=== PATIENT | male | born 1945 | race Caucasian/White ===

== ENCOUNTER 2017-03-20 19:53 | Observation (INO) | payer BC ==
--- NOTE | 2017-03-20 20:47 | RAD ---
HISTORY: Right elbow pain, swelling COMPARISONS: None VIEWS: 4, Frontal, lateral, and oblique views of the right elbow FINDINGS: BONE DENSITY: Normal. BONES: There is no displaced fracture. There is an enthesophyte of the olecranon. There is no appreciable erosion or periosteal reaction. JOINTS: There is mild osteoarthritis of the ulna-trochlear articulation. There is a supracondylar fat pad posteriorly consistent with joint effusion. ALIGNMENT: There is no dislocation. SOFT TISSUES: There is soft tissue swelling. There is dystrophic calcification along the lateral humeral epicondyle. OTHER FINDINGS: None. IMPRESSION: 1. JOINT EFFUSION. 2. MILD OSTEOARTHRITIS. 3. DYSTROPHIC CALCIFICATION ALONG THE MEDIAL HUMERAL EPICONDYLE SUGGESTIVE OF EPICONDYLITIS. 4. SOFT TISSUE SWELLING. 5. NO APPRECIABLE EROSION OR PERIOSTEAL REACTION. PLAIN FILM FINDINGS OF OSTEOMYELITIS ARE RELATIVELY LATE FINDINGS. IF THERE IS PERSISTENT CLINICAL CONCERN FOR OSTEOMYELITIS, RECOMMEND CORRELATION WITH FOLLOWUP IMAGING, THREE-PHASE BONE SCANNING, WHITE BLOOD CELL SCAN, AND/OR MRI OF THE AFFECTED REGION.
[2017-03-20 20:50] LABS: ABS Basophils 0.1 10^3/ul (0-0.2); ABS Eosinophils 0.1 10^3/ul (0-0.6); ABS Lymphocytes 1.5 10^3/ul (1.0-4.8); ABS Monocytes 1.3 10^3/ul (0-0.8); ABS Neutrophils 7.3 10^3/ul (1.5-7.7); ABS Nucleated RBC 0 10^3/ul; Hematocrit 43 % (42-52); Hemoglobin 14.8 g/dl (14.0-18.0); Lymphocyte % 14.7 % (25-47); Mean Corpuscular HGB Conc 35 g/dl (31-36); Mean Corpuscular Hemoglobin 33 pg (27-31); Mean Corpuscular Volume 95 fL (80-94); Mean Platelet Volume 8 um3 (7.4-10.4); Nucleated Red Blood Cells % 0; Platelet Count 300 10^3/ul (150-450); Red Blood Count 4.48 10^6/ul (4.0-5.4); Red Cell Distribution Width 13 % (10.5-15); White Blood Count 10.3 10^3/ul (3.5-10.8)
[2017-03-20 21:05] LABS: EGFR Non-African American 64.6 (>60)
[2017-03-20] MEDS ORDERED: Ondansetron INJ* 2 MG/ML VIAL IV PRN (21:38)
[2017-03-20] MEDS ORDERED: CMCS: Melatonin (NF) 3 MG TAB PO PRN (21:38)
[2017-03-20] MEDS ORDERED: Acetaminophen TAB* 325 MG PO PRN (21:38)
[2017-03-20] MEDS ORDERED: oxyCODONE TAB* 5 MG TAB PO PRN (21:38)
[2017-03-20] MEDS ORDERED: traMADol TAB* 50 MG PO PRN (21:38)
--- NOTE | 2017-03-20 21:54 | ED ---
Jerzy Hahn Julia, scribed for Salvador Erickson MD on 03/20/17 at 2028 . Upper Extremity Pain - HPI Summary HPI Summary: This patient is a 72 year old M presenting to [facility] with a chief complaint of worsening R elbow pain and swelling since 03/17/17. Patient reports inability to flex elbow beyond 90 degrees, and fever today (99.5). Patient denies chills, sweats. The patient rates the pain 7/10 in severity. Pt has been self-limiting ROM. Pt states symtpoms have been occurring for a few weeks. Pt has no hx of OA or RA. - History of Current Complaint Chief Complaint: EDExtremityUpper Stated Complaint: RIGHT ELBOW PAIN Time Seen by Provider: 03/20/17 20:13 Hx Obtained From: Patient Onset/Duration: Started Weeks Ago, Still Present, Worse Since - since 03/17/17 Timing: Constant Severity Initially: Mild Severity Currently: Moderate Pain Location: Elbow - R Aggravating Factor(s): Flexion, Extension - Allergies/Home Medications Allergies/Adverse Reactions: Allergies Allergy/AdvReac Type Severity Reaction Status Date / Time Sulfa (Sulfonamide Allergy Unknown Verified 03/20/17 20:03 Antibiotics) Reaction Details PMH/Surg Hx/FS Hx/Imm Hx Sensory History: Reports: Hx Contacts or Glasses Opthamlomology History: Denies: Hx Legally Blind EENT History: Denies: Hx Deafness Infectious Disease History: No Infectious Disease History: Denies: Traveled Outside the [place] in Last 30 Days - Family History Known Family History: Positive: Other - lung CA - Social History Hx Tobacco Use: Yes - Light smoker over 40 years ago Smoking Status (MU): Former Smoker Review of Systems Positive: Fever. Negative: Chills, Skin Diaphoresis Eyes: Negative ENT: Negative Cardiovascular: Negative Respiratory: Negative Gastrointestinal: Negative Genitourinary: Negative Positive: Arthralgia, Myalgia - R elbow, Decreased ROM - R elbow, Edema Skin: Other Positive: Other Neurological: Negative All Other Systems Reviewed And Are Negative: Yes Physical Exam - Summary Physical Exam Summary: Appearance: Well-appearing, Well-nourished Skin: Warm, Dry, No rash Eyes: Normal, PERRL, EOMI, sclera anicteric ENT: Normal Neck: Supple, nontender Respiratory: Clear to auscultation Cardiovascular: S1, S2, no rub, no gallop, soft systolic murmur detected a L sternal border Abdomen: Soft, nontender, no organomegaly Bowel sounds: Present Musculoskeletal: Normal, Limited flexion and extension no edema, R elbow edema, most tender over medial condyle. Cellulitisover olecranon bursa Neurological: Normal, A&Ox3, cranial nerves II-XII WNL, follows commands, gait not tested, sensation intact to pin and light touch Psychiatric: affect normal, behavior appropriate, dressed appropriately, judgment intact Triage Information Reviewed: Yes Vital Signs On Initial Exam: Initial Vitals Temp Pulse Resp BP Pulse Ox 99.5 F 100 20 149/80 96 03/20/17 19:59 03/20/17 19:59 03/20/17 19:59 03/20/17 19:59 03/20/17 19:59 Vital Signs Reviewed: Yes Diagnostics - Vital Signs Vital Signs Temp Pulse Resp BP Pulse Ox 03/20/17 19:59 99.5 F 100 20 149/80 96 - Laboratory Lab Results: Lab Results 03/20/17 03/20/17 Range/Units 20:37 20:37 WBC 10.3 (3.5-10.8) 10^3/ul RBC 4.48 (4.0-5.4) 10^6/ul Hgb 14.8 (14.0-18.0) g/dl Hct 43 (42-52) % MCV 95 H (80-94) fL MCH 33 H (27-31) pg MCHC 35 (31-36) g/dl RDW 13 (10.5-15) % Plt Count 300 (150-450) 10^3/ul MPV 8 (7.4-10.4) um3 Neut % (Auto) 70.5 (38-83) % Lymph % (Auto) 14.7 L (25-47) % King % (Auto) 12.7 H (1-9) % Eos % (Auto) 1.0 (0-6) % Baso % (Auto) 1.1 (0-2) % Absolute Neuts (auto) 7.3 (1.5-7.7) 10^3/ul Absolute Lymphs (auto) 1.5 (1.0-4.8) 10^3/ul Absolute Monos (auto) 1.3 H (0-0.8) 10^3/ul Absolute Eos (auto) 0.1 (0-0.6) 10^3/ul Absolute Basos (auto) 0.1 (0-0.2) 10^3/ul Absolute Nucleated RBC 0 10^3/ul Nucleated RBC % 0 ESR 29 (0-40) mm/Hr Sodium 136 (133-145) mmol/L Potassium 3.9 (3.5-5.0) mmol/L Chloride 102 (101-111) mmol/L Carbon Dioxide 27 (22-32) mmol/L Anion Gap 7 (2-11) mmol/L BUN 15 (6-24) mg/dL Creatinine 1.12 (0.67-1.17) mg/dL Est GFR ( Amer) 83.1 (>60) Est GFR (Non-Af Amer) 64.6 (>60) BUN/Creatinine Ratio 13.4 (8-20) Glucose 133 H (70-100) mg/dL Calcium 9.7 (8.6-10.3) mg/dL Total Bilirubin 0.60 (0.2-1.0) mg/dL AST 19 (13-39) U/L ALT 14 (7-52) U/L Alkaline Phosphatase 52 (34-104) U/L C-Reactive Protein 33.70 H (< 5.00) mg/L Total Protein 7.3 (6.4-8.9) g/dL Albumin 4.1 (3.2-5.2) g/dL Globulin 3.2 (2-4) g/dL Albumin/Globulin Ratio 1.3 (1-3) Result Diagrams: 03/20/17 20:37 03/20/17 20:37 Lab Statement: Any lab studies that have been ordered have been reviewed, and results considered in the medical decision making process. - Radiology R Elbow XR Radiology Interpretation Completed By: Radiologist - 1. JOINT EFFUSION. 2. MILD OSTEOARTHRITIS. 3. DYSTROPHIC CALCIFICATION ALONG THE MEDIAL HUMERAL EPICONDYLE SUGGESTIVE OF EPICONDYLITIS. 4. SOFT TISSUE SWELLING. 5. NO APPRECIABLE EROSION OR PERIOSTEAL REACTION. PLAIN FILM FINDINGS OF OSTEOMYELITIS ARE RELATIVELY LATE FINDINGS. IF THERE IS PERSISTENT CLINICAL CONCERN FOR OSTEOMYELITIS, RECOMMEND CORRELATION WITH FOLLOWUP IMAGING, THREE- PHASE BONE SCANNING, WHITE BLOOD CELL SCAN, AND/OR MRI OF THE AFFECTED REGION. ED Physician has reviewed this report. Course/Dx - Course Course Of Treatment: Pt presents with worsening R elbow pain and swelling since 03/17/17. Patient reports inability to flex elbow beyond 90 degrees, and fever today (99.5). Pt states symtpoms have been occurring for a few weeks. XR reveals joint effusion. Due to limited ROM and cellulitis, there is concern for infection. Dr. Mane agrees to admit at 21:30. - Diagnoses Provider Diagnoses: Erysipelas, Joint infection - Physician Notifications Discussed Care of Patient With: Nikolas Ngo - Ortho Time Discussed With Above Provider: 21:26 Instructed by Provider To: Other - does not object to admission Discharge - Discharge Plan Condition: Fair Disposition: ADMITTED TO [facility] The documentation as recorded by the Jerzy biggs Julia accurately reflects the service I personally performed and the decisions made by me, Salvador Erickson MD.
[2017-03-20] MEDS ORDERED: ceFAZolin 1 GM VIAL(*) 1 GM in NS 0.9% 50 ML* 50 ML IVPB SCH (22:00)
[2017-03-20] MEDS ORDERED: Vancomycin per Pharmacy* NOTE FOLLOW UP PRN (22:23)
[2017-03-20] MEDS: ceFAZolin 1 GM in Dextrose (*) 1 GM/50 ML BAG IVPB SCH (22:25)
[2017-03-20 22:36] LABS: INR 0.96 (0.77-1.02)
[2017-03-20] MEDS ORDERED: Vancomycin(*) 1,000 MG in NS 0.9% 250 ML* 250 ML IVPB ONE (23:00)
[2017-03-20] MEDS: NS 0.9% 1000 ML* 1,000 ML IV SCH (23:17)
--- NOTE | 2017-03-20 23:44 | HP ---
H&P (Free Text) History and Physical: PCP: Angel Haines MD Date/Time: 03/20/20172129 CC: R elbow pain & swelling HPI: Mr Okeefe is a 72YO male HX hypothyroidism reports onset of R elbow discomfort around [place] which has waxed and waned, but not been significant until this past Saturday when he experienced significant worsening of pain worse with bending the joint, swelling, and redness for which he presents tonight. He denies F/C, sweats, N/V, diarrhea, chest pain, SoB, palpitations, light- headedness, open wound, drainage, or other issues. He denies injury or change in activity. He has no HX of gout or diabetes. PMedHx hypothyroidism HX hepatitis 2nd trimethoprim/sulfamethoxazole Ambulatory Orders Aspirin TAB* [Aspirin 325 MG TAB*] 325 mg PO DAILY 03/20/17 Levothyroxine TAB* [Synthroid TAB*] 100 mcg PO DAILY 03/20/17 Allergies Sulfa (Sulfonamide Antibiotics) Allergy (Verified 03/20/17 20:03) Unknown Reaction Details PSurgHx tonsillectomy appendectomy SocHx: trivial smoking HX, no alcohol or recreational drugs; lives with his ; works as a event promoter; full code status FamHx: Father: passed at 56 2nd lung CA. An uncle passed at 48 2nd lung CA. ROS: as above, otherwise reviewed and all were negative vitals: Vital Signs Temp 37.2 C 03/20/17 23:10 Pulse 72 03/20/17 23:10 Resp 16 03/20/17 23:10 BP 134/74 03/20/17 23:10 Pulse Ox 96 03/20/17 23:10 Intake & Output 03/19/17 03/20/17 03/20/17 23:59 11:59 23:59 Weight 63.503 kg Constitutional: NAD, normally developed, well-nourished white male HEENM: atraumatic; sclera/conjunctiva: anicteric/clear; hearing: clinically intact; oropharynx: clear, mucosa moist Neck: soft tissue: non-tender; thyroid: normal Pulmonary: clear to auscultation bilaterally, good aeration, no accessory muscle use CV: RR/RR, normal S1S2, 2/6 holo-systolic ejection murmure, no carotid bruit, no jugular venous distention, 2+ B DP/PT, no edema Abdominal: soft, non-distended, non-tender, no rebound/guarding/rigidity, normoactive bowel sounds, no hepatosplenomegaly or masses, no costovertebral angle tenderness Musculoskeletal: general: grossly intact; R elbow w/ soft tissue swelling & induration centered around the medial epicondyle, no crepitus, marked pain with any active/passive ROM Integumental: light uniform erythema centered on R medial epicondyle Psychiatric orientation: AA&O to PPS affect: calm mood: cooperative eye contact: good content: reliable responses: timely insight: good Testing: Lab Results 03/20/17 03/20/17 03/20/17 Range/Units 20:37 20:37 22:00 WBC 10.3 (3.5-10.8) 10^3/ul RBC 4.48 (4.0-5.4) 10^6/ul Hgb 14.8 (14.0-18.0) g/dl Hct 43 (42-52) % MCV 95 H (80-94) fL MCH 33 H (27-31) pg MCHC 35 (31-36) g/dl RDW 13 (10.5-15) % Plt Count 300 (150-450) 10^3/ul MPV 8 (7.4-10.4) um3 Neut % (Auto) 70.5 (38-83) % Lymph % (Auto) 14.7 L (25-47) % Wheeler % (Auto) 12.7 H (1-9) % Eos % (Auto) 1.0 (0-6) % Baso % (Auto) 1.1 (0-2) % Absolute Neuts (auto) 7.3 (1.5-7.7) 10^3/ul Absolute Lymphs (auto) 1.5 (1.0-4.8) 10^3/ul Absolute Monos (auto) 1.3 H (0-0.8) 10^3/ul Absolute Eos (auto) 0.1 (0-0.6) 10^3/ul Absolute Basos (auto) 0.1 (0-0.2) 10^3/ul Absolute Nucleated RBC 0 10^3/ul Nucleated RBC % 0 ESR 29 (0-40) mm/Hr INR (Anticoag Therapy) 0.96 (0.77-1.02) APTT 31.2 (26.0-36.3) seconds Sodium 136 (133-145) mmol/L Potassium 3.9 (3.5-5.0) mmol/L Chloride 102 (101-111) mmol/L Carbon Dioxide 27 (22-32) mmol/L Anion Gap 7 (2-11) mmol/L BUN 15 (6-24) mg/dL Creatinine 1.12 (0.67-1.17) mg/dL Est GFR ( Amer) 83.1 (>60) Est GFR (Non-Af Amer) 64.6 (>60) BUN/Creatinine Ratio 13.4 (8-20) Glucose 133 H (70-100) mg/dL Calcium 9.7 (8.6-10.3) mg/dL Total Bilirubin 0.60 (0.2-1.0) mg/dL AST 19 (13-39) U/L ALT 14 (7-52) U/L Alkaline Phosphatase 52 (34-104) U/L C-Reactive Protein 33.70 H (< 5.00) mg/L Total Protein 7.3 (6.4-8.9) g/dL Albumin 4.1 (3.2-5.2) g/dL Globulin 3.2 (2-4) g/dL Albumin/Globulin Ratio 1.3 (1-3) 03/20/17 Range/Units 22:00 WBC (3.5-10.8) 10^3/ul RBC (4.0-5.4) 10^6/ul Hgb (14.0-18.0) g/dl Hct (42-52) % MCV (80-94) fL MCH (27-31) pg MCHC (31-36) g/dl RDW (10.5-15) % Plt Count (150-450) 10^3/ul MPV (7.4-10.4) um3 Neut % (Auto) (38-83) % Lymph % (Auto) (25-47) % Wheeler % (Auto) (1-9) % Eos % (Auto) (0-6) % Baso % (Auto) (0-2) % Absolute Neuts (auto) (1.5-7.7) 10^3/ul Absolute Lymphs (auto) (1.0-4.8) 10^3/ul Absolute Monos (auto) (0-0.8) 10^3/ul Absolute Eos (auto) (0-0.6) 10^3/ul Absolute Basos (auto) (0-0.2) 10^3/ul Absolute Nucleated RBC 10^3/ul Nucleated RBC % ESR (0-40) mm/Hr INR (Anticoag Therapy) (0.77-1.02) APTT (26.0-36.3) seconds Sodium (133-145) mmol/L Potassium (3.5-5.0) mmol/L Chloride (101-111) mmol/L Carbon Dioxide (22-32) mmol/L Anion Gap (2-11) mmol/L BUN 15 (6-24) mg/dL Creatinine 1.10 (0.67-1.17) mg/dL Est GFR ( Amer) 84.9 (>60) Est GFR (Non-Af Amer) 66.0 (>60) BUN/Creatinine Ratio (8-20) Glucose (70-100) mg/dL Calcium (8.6-10.3) mg/dL Total Bilirubin (0.2-1.0) mg/dL AST (13-39) U/L ALT (7-52) U/L Alkaline Phosphatase (34-104) U/L C-Reactive Protein (< 5.00) mg/L Total Protein (6.4-8.9) g/dL Albumin (3.2-5.2) g/dL Globulin (2-4) g/dL Albumin/Globulin Ratio (1-3) XRY R elbow, personally reviewed: IMPRESSION: 1. JOINT EFFUSION. 2. MILD OSTEOARTHRITIS. 3. DYSTROPHIC CALCIFICATION ALONG THE MEDIAL HUMERAL EPICONDYLE SUGGESTIVE OF EPICONDYLITIS. 4. SOFT TISSUE SWELLING. 5. NO APPRECIABLE EROSION OR PERIOSTEAL REACTION. PLAIN FILM FINDINGS OF OSTEOMYELITIS ARE RELATIVELY LATE FINDINGS. IF THERE IS PERSISTENT CLINICAL CONCERN FOR OSTEOMYELITIS, RECOMMEND CORRELATION WITH FOLLOWUP IMAGING, THREE-PHASE BONE SCANNING, WHITE BLOOD CELL SCAN, AND/OR MRI OF THE AFFECTED REGION. Impression: 72M HX hypothyroidism presenting with cellulitis R elbow & concern for septic joint DIAGNOSIS & PLAN Primary cellulitis R elbow, concern for septic joint : IV vancomycin & cefazolin : IVFs : blood CX : A Mariel, MD orthopedic surgeon consulted by ED, will evaluate in AM : pain control : supportive care Secondary hypothyroidism : continue levothyroxine Admission Rational: inpatient for potential septic joint not anticipated to be adequately evaluated & treated w/i 48h to allow for discharge DVTp: heparin SQ Code Status: full HCP:
[2017-03-21] MEDS: ceFAZolin 1 GM in Dextrose (*) 1 GM/50 ML BAG IVPB SCH ×2 (05:15→09:49)
[2017-03-21] MEDS ORDERED: Omeprazole CAP* 20 MG PO SCH (06:00)
[2017-03-21] MEDS ORDERED: Heparin VIAL(*) 5000 UNITS/ML VIAL (FIVE THOUSAND) SUBCUT SCH ×2 (06:00→18:00)
[2017-03-21] MEDS ORDERED: Levothyroxine TAB* 100 MCG TAB PO SCH (06:00)
[2017-03-21 06:14] LABS: ABS Basophils 0.1 10^3/ul (0-0.2); ABS Eosinophils 0.2 10^3/ul (0-0.6); ABS Lymphocytes 1.8 10^3/ul (1.0-4.8); ABS Monocytes 1.2 10^3/ul (0-0.8); ABS Nucleated RBC 0 10^3/ul; Eosinophil % 1.9 % (0-6); Hematocrit 41 % (42-52); Lymphocyte % 21.3 % (25-47); Mean Corpuscular HGB Conc 34 g/dl (31-36); Mean Corpuscular Hemoglobin 33 pg (27-31); Mean Corpuscular Volume 96 fL (80-94); Mean Platelet Volume 8 um3 (7.4-10.4); Nucleated Red Blood Cells % 0.1; Platelet Count 280 10^3/ul (150-450); Red Blood Count 4.27 10^6/ul (4.0-5.4); Red Cell Distribution Width 13 % (10.5-15); White Blood Count 8.2 10^3/ul (3.5-10.8)
[2017-03-21 06:27] LABS: EGFR Non-African American 67.4 (>60)
[2017-03-21] MEDS ORDERED: Aspirin TAB* 325 MG PO SCH (09:00)
[2017-03-21] MEDS ORDERED: Docusate CAP* 100 MG PO SCH (09:00)
--- NOTE | 2017-03-21 09:49 | CONSULT ---
Consult Consult: Orthopedics Consult Chief Complaint: Right elbow pain. 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 He reports 1 week of worsening right medial elbow pain and swelling. No discrete trauma or injury that he recalls. Has had tennis elbow in the past. Came into ER last night due to acute worsening. He reports improvement since starting antibiotics. The pain is located at the medial right elbow and is daily, moderate, burning. Pain worse with motion and lessened when rested. There is associated swelling but no ecchymosis. No DM, smoking or h/o VTE Review of Systems: Negative for fever, recent visual changes, difficulty swallowing, chest pain, shortness of breath, abdominal pain, hematuria, easy bruising, diffuse weakness or lack of coordination, and diffuse rash. PMH: hypothyroid Allergies: sulfa PSH: tonsillectomy, appendectomy Meds: aspirin, levothyroxine FH: lung cancer SH: veteranarian, . non smoker Physical Examination: Constitutional: Temp Pulse Resp BP Pulse Ox 97.9 F 64 16 122/59 97 03/21/17 07:41 03/21/17 07:41 03/21/17 08:00 03/21/17 07:41 03/21/17 07:41 General appearance is healthy and non-septic in no acute distress. Cardiovascular: Pulse examination demonstrates positive radial pulses with brisk capillary refill. There are no varicosities. Abdomen: soft and nontender Lymphatic: No lymphadenopathy appreciated. Skin: Bilateral upper and lower extremity examination demonstrates no ulcerative lesions. Psychiatric / Neurological: Appropriate affect. Alert and oriented to person, place and time. There is no significant abnormality in coordination appreciated. Normoreflexive deep tendon reflex of the affected extremity. Musculoskeletal: Bilateral lower extremities and contralateral upper extremity show full range of motion with no evidence of instability and no tenderness with palpation and 5 /5 strength. There is no gross deformity. Intact light touch sensation. There is no global swelling, edema, or varicosities. The skin and nails are normal to inspection/palpation without evidence of RSD or lymphadenopathy. TTP at medial elbow with some edema and warmth. No erythema on exam today. Shoulder ROM - full and painless Elbow ROM - 50 degrees of flex/extension before becomes painful. Full, painless pronation and supination. Wrist ROM - full and painless 5/5 EPL, OP, 1st LISANDRA SILT R/M/U distributions Palpable radial pulse. Studies: X-rays show likely chronic changes at medial epicondyle WBC: 10 -> 8 CRP 33.7 ESR 29 Impression and Plan: Possible right elbow cellulitis. No concern for septic arthritis on exam given painless ROM. Would continue abx given improvement and I will f/u with him in 1 week in clinic. Sling for comfort with TID ROM exercises. All questions were answered. Josh Floyd MD
[2017-03-21] MEDS: NS 0.9% 1000 ML* 1,000 ML IV SCH (09:58)
[2017-03-21] MEDS ORDERED: Vancomycin(*) 1,000 MG in NS 0.9% 250 ML* 250 ML IVPB SCH (11:00)
[2017-03-21 15:47] VITALS: BP 119/64
[2017-03-21] MEDS ORDERED: ceFUROXime TAB(*) 250 MG PO SCH (21:00)
[2017-03-22] MEDS ORDERED: Vancomycin Trough Check NOTE FOLLOW UP ONE (10:30)
== END 2017-03-21 16:00 | disposition home or self-care (01) ==
LOC: ED 19:53 → INTOOBSV 21:33 → MEDTELE 21:33
PROVIDERS: ADMIT Hospitalist; ATTEND Internal Medicine
DX: M25.521 Pain in right elbow (principal); A46 Erysipelas; M00.9 Pyogenic arthritis, unspecified; Z90.89 Acquired absence of other organs
CPT/HCPCS: 36415; 80048; 80053; 80202; 82565; 84520; 85025; 85610; 85652; 85730; 86140; 87040; 99284; A9270-GY; G0378; G8987-GO-CI; G8988-GO-CI; G8989-GO-CI; J0690; J3370

== ENCOUNTER → 2017-09-02 10:14 | Day surgery (SDC) | payer BC ==
[~2017-09-02 10:14] MED LIST: Heparin 2 UNITS/ML IVPREMIX* 3,000 ML IV ONE; Heparin(*) 1000 UNIT/ML 10 ML VIAL CATH LAB IV ONE; Iohexol 350 (CONTRAST) 200 ML MDV IV ONE; Lidocaine 1%* 5 ML VIAL ONE; Midazolam* 1 MG/ML 10 ML VIAL (10 MG) ONE; VERAPAMIL 2.5 MG/ML 2 ML VIAL ** 5 mg/2 ml ONE; fentaNYL* 50 MCG/ML 2 ML VIAL (100 MCG VIAL) ONE; nitroGLYCERIN DRIP* 25,000 MCG/250 ML BTL ONE
[2017-09-02 13:52] VITALS: BP 122/65
--- NOTE | 2017-09-05 05:40 | CATH ---
CC: Dr. Haines; Dr. Ion Morrissey.* CATH REPORT: DATE OF PROCEDURE: 09/02/17 - [facility] CATH AIR QUALITY CONSULTANT: Dr. Ion Morrissey. PRIMARY CARE PHYSICIAN: Dr. Haines. PROCEDURE: Right radial artery access bilateral selective coronary cineangiography. HISTORY: A 72-year-old male with asymptomatic severe aortic stenosis. On stress imaging at peak exercise he developed a drop in systolic blood pressure. He is referred for coronary angiography prior to anticipated valve treatment. PROCEDURE ACCESS: Right radial artery sheath 6F slender. MEDICATIONS: 1. Subcu lidocaine. 2. IV Versed. 3. IV Fentanyl. 4. Heparin 3000 units. 5. Verapamil 3 mg. 6. Nitroglycerin 300 mcg. DIAGNOSTIC CATHETER: 5F TIG 4. HEMODYNAMICS: Initial BP 147/68. LV not entered. Final BP 127/62. ANGIOGRAPHY: Right radial artery. It was injected just distal to the elbow because of some resistance to passage of the J-wire, there was no loop, this was easily traversed with a Wholey wire. Left Main. The left main is normal in size and length, has no stenosis. Incidentally noted is heavy calcification of the aortic leaflets. LAD. The LAD is moderate, extends to the apex, the LAD supplies a number of small diagonals. The LAD has no significant stenosis. Circumflex. The circumflex is moderate, nondominant, supplies a small marginal and a large posterolateral, the circumflex has no stenosis. RCA. The RCA is dominant, moderate with a moderate PDA and posterolateral, the RCA has no stenosis. CONCLUSION: 1. No obstructive coronary artery disease. 2. Successful right radial artery access. 3. Severe aortic stenosis by noninvasive testing. [id number]/[facility] #: [id number] [facility]
== END | disposition home or self-care (01) ==
LOC: CHICATH 10:14
PROVIDERS: ATTEND Internal Medicine Cardiovascular Disease
DX: I35.0 Nonrheumatic aortic (valve) stenosis (principal); Z87.891 Personal history of nicotine dependence; E03.9 Hypothyroidism, unspecified
CPT/HCPCS: 93454; 99156; 99157; J1644; J2250; J3010